=== PATIENT | female | born 1980 | race Hispanic/Latino ===

== ENCOUNTER 2022-10-28 00:54 | Emergency (ER) | payer BC ==
--- OUTSIDE RECORDS SUMMARY | 2022-10-28 00:57 | XMS REPORT | Continuity of Care Document ---
:1980 Author Organization [facility] t Address [address] [place] [address] Care Team Providers Name Role Phone Godfrey Frankel Attending Clinician Unavailable SHENA GOMES Attending Clinician Unavailable Nasra العلي MD Attending Clinician Payers Payer Name Policy Type Policy Number Effective Date Expiration Date S sandy [facility] [id number] 2014 00:00:00 Problems Condition Condition Condition Status Onset Resolution Last Treating Co mments Source Name Details Category Date Date Treatment Clinician Date Contracept Contracept Disease Active 2016-11 U nivers patricia patricia 2-28 [place] [facility] Left groin Left groin Disease Active 2015-11 U nivers pain pain 0-10 ity of 00:00: [place] 00 Medical Branch Well woman Well woman Disease Active U nivers exam exam 6-30 ity of 00:00: [place] 00 Medical Branch History of History of Disease Active Overview : Univers tubal tubal 05-06 Result ity of ligation ligation 00:00: reviewed, Jem as 00 full Medical cross Branch section of each tube present as desired. Irregular Irregular Disease Active Overview: Univers intermenst intermenst 05-06 the last ity of rual rual 00:00: month Pt [place] bleeding bleeding 00 report Medica l spotting Branch after menses and sometimes after relations , urged to keep log Allergies, Adverse Reactions, Alerts Allergy Allergy Status Severity Reaction(s) Onset Inactive Treating Comm ents Source Name Type Date Date Clinician NO KNOWN Drug Active Univers ALLERGIE Class ity of S [facility] Social History Social Habit Start Date Stop Date Quantity Comments Source Alcohol intake [facility] [place] [facility] Sex Assigned At Uni versity [facility] Smoking Status Start Date Stop Date Source Never smoker [facility] Medications Ordered Filled Start Stop Current Ordering Indication Dosage Frequency Signature Comments Components Source Medication Medication Date Date Medication? Clinician (SIG) Name Name ibuprofen 2015-11 Yes [id number] 600mg Take 1 Univers (MOTRIN) 0-10 tablet by ity of 600 mg 00:00: mouth [place] tablet 00 every 6 Medical (six) Branch hours as needed for Pain (scale 4-6) with oral narcotics. Immunizations Ordered Filled Immunization Date Status Comments Sour e Immunization Name Name Influenza Virus 2018-08-07 Completed [facility] y of Vaccine 00:00:00 [facility] Td 2009-11-07 Completed [facility] 00:00:00 [facility] Procedures This patient has no known procedures. Encounters Start End Encounter Admission Attending Care Care Encounter Source Date/Time Date/Time Type Type Clinicians Facility Department ID 2022-01-04 Outpatient Frankel, STLMLC [facility] [id number] Common 13:48:02 Godfrey [facility] 2021-12-02 Outpatient Frankel, STLMLC [facility] [id number] Common 13:39:28 Godfrey [id number] [facility] 2021-12-02 Outpatient Frankel, STLMLC [facility] [id number] Common 12:39:59 Godfrey [id number] [facility] 2021-12-02 Outpatient Frankel, STLMLC [facility] [id number] Common 11:48:56 Godfrey 012[address] [facility] 2021-04-07 2021-04-07 Outpatient R ELISEO [facility] [id number] Univers 10:00:00 10:00:00 SHENA [facility] 2021-03-16 2021-03-16 Outpatient [facility] [id number] Univers 15:50:00 15:50:00 [facility] 2019-06-01 2019-06-01 [id number] Univers 00:00:00 00:00:00 Nasra Castanon [id number] i ty of [place] [id number] Sandra moreno Professio [phone] Ut dical [address] 2019-06-01 2019-06-01 [facility] [id number] 00:00:00 00:00:00 Nasra Castanon [id number] [place] [id number] Professio [phone] [address] Results This patient has no known results.
[2022-10-28] MEDS ORDERED: KETOROLAC 30 MG/ML INJ ONE (01:23)
[2022-10-28] MEDS ORDERED: NA CHLORIDE 0.9% 1,000 ML ONE (01:23)
[2022-10-28] MEDS ORDERED: ONDANSETRON 4 MG/2 ML VIAL ONE (01:23)
[2022-10-28 01:33] LABS: Urine Blood Trace-intact (Negative); Urine Glucose Negative (Negative); Urine Protein 2+ (Negative); Urine Specific Gravity >=1.030 (1.005-1.030)
[2022-10-28 02:48] LABS: Absolute Lymphocytes (CBC) 0.6 K/uL (0.7-4.9); MCV 86.1 fL (80-100); MPV 8.8 fL (7.6-11.3); RBC Red Blood Cell Count 4.53 M/uL (3.86-4.86)
[2022-10-28 02:59] LABS: Albumin 3.4 g/dL (3.4-5.0); Bilirubin Total 0.2 mg/dL (0.2-1.0); Potassium 3.4 mmol/L (3.5-5.1); Protein, Total 7.5 g/dL (6.4-8.2); Troponin High Sensitivity 4.2 pg/mL (<58.9)
[2022-10-28 03:14] LABS: Urine Bacteria None Seen /HPF (<20); Urine Mucus 3+ /HPF (None Seen); Urine RBC <5 /HPF (None Seen)
--- NOTE | 2022-10-28 03:46 | ER ---
Nurse's Notes [facility] Name: Kanwal Groves Age: 42 yrs Sex: Female : 1980 Arrival Date: 10/28/2022 Time: 00:59 Bed 18 Private MD: Diagnosis: Vomiting and diarrhea;Periumbilical abdominal pain Presentation: 10/28 01:10 Chief complaint: Patient states: mid constant abdominal pain with nausea,vomiting x 2 pf1 episodes and diarrhea x 10 episodes in the past 24 hours,onset Tuesday. 01:10 Coronavirus screen: Client presents with at least one sign or symptom that may indicate pf1 coronavirus-19. Standard/surgical mask placed on the client. Ebola Screen: Patient negative for fever greater than or equal to 101.5 degrees Fahrenheit, and additional compatible Ebola Virus Disease symptoms. Initial Sepsis Screen: Does the patient meet any 2 criteria? No. Patient's initial sepsis screen is negative. Does the patient have a suspected source of infection? No. Patient's initial sepsis screen is negative. Risk Assessment: Do you want to hurt yourself or someone else? Patient reports no desire to harm self or others. Onset of symptoms was October 26, 2022. 01:10 Method Of Arrival: Wheelchair pf1 01:10 Acuity: EMILY 3 pf1 Triage Assessment: 02:28 General: see general assessment. 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 - Social history:: Smoking status: Patient/guardian denies using. Screenin:55 [facility] ED Fall Risk Assessment (Adult) History of falling in the last 3 months, pf1 including since admission No falls in past 3 months (0 pts) Confusion or Disorientation No (0 pts) Intoxicated or Sedated No (0 pts) Impaired Gait No (0 pts) Mobility Assist Device Used No (0 pt) Altered Elimination No (0 pt) Score/Fall Risk Level 0 - 2 = Low Risk Oriented to surroundings, Maintained a safe environment, Educated pt \T\ family on fall prevention, incl call for assistance when getting out of bed, Assessed \T\ reinforced patient's understanding of fall precautions, Provided non-skid footwear, Hourly rounding (assess needs \T\ fall precautionary measures) done, Used ambulatory aids as needed (educated on \T\ assisted with), Used gait belt as appropriate. 01:55 Abuse screen: Denies threats or abuse. Nutritional screening: No deficits noted. pf1 Tuberculosis screening: No symptoms or risk factors identified. Assessment: 01:10 General: Appears in no apparent distress. uncomfortable, well groomed, well developed, pf1 Behavior is calm, cooperative, appropriate for age, quiet. 01:10 Pain: Complains of pain in abdomen Pain currently is 8 out of 10 on a pain scale. Pain pf1 began Tuesday with nausea, vomiting x 2 episodes and diarrhea x 10 episodes in the past 24 hours. Neuro: No deficits noted. Level of Consciousness is awake, alert, obeys commands, Oriented to person, place, time, situation. Cardiovascular: No deficits noted. Respiratory: No deficits noted. Breath sounds are clear bilaterally. GI: Abdomen is flat, non-distended, Last BM was October 27, 2022. Bowel sounds present X 4 quads. Abd is soft Abdomen is tender to palpation in Patient C/O mid constant abdominal pain Reports diarrhea, nausea. : No deficits noted. No signs and/or symptoms were reported regarding the genitourinary system. EENT: No deficits noted. No signs and/or symptoms were reported regarding the EENT system. Derm: No deficits noted. No signs and/or symptoms reported regarding the dermatologic system. Skin is intact, Skin is dry, Skin is pink, warm \T\ dry. normal, Skin temperature is warm. Musculoskeletal: No deficits noted. No signs and/or symptoms reported regarding the musculoskeletal system. 02:15 General: Dawit called from lab to report blood was hemolyzed and needed to be pf1 recollected.. 03:43 General: Patient PO challenged at this time. . pf1 04:02 General: Patient tolerated 180ml of water. pf1 Vital Signs: 01:15 BP 112 / 69; Pulse 82; Resp 18; Temp 98.1; Pulse Ox 99% ; Weight 66.22 kg; Height 5 ft. pf1 3 in. (160.02 cm); Pain 8/10; 02:00 BP 102 / 58; Pulse 81; Resp 16; Pulse Ox 99% ; Pain 4/10; pf1 03:00 BP 96 / 53; Pulse 78; Resp 18; Pulse Ox 98% ; Pain 4/10; pf1 03:44 BP 106 / 50; Pulse 78; Resp 18; Temp 97.1; Pulse Ox 98% ; Pain 0/10; pf1 01:15 Body Mass Index 25.86 (66.22 kg, 160.02 cm) pf1 ED Course: 00:59 Patient arrived in ED. ja2 01:00 Abimbola Baxter MD is Attending Physician. sd2 01:10 Patient has correct armband on for positive identification. pf1 01:18 Kathy dove, RENE is Primary Nurse. pf1 01:40 No provider procedures requiring assistance completed. Missed attempt(s): 20 gauge in pf1 left antecubital area. 01:46 Missed attempt(s): 22 gauge in left forearm. pf1 01:54 Patient has correct armband on for positive identification. Placed in gown. Bed in low pf1 position. Call light in reach. 01:59 Inserted saline lock: 20 gauge in right wrist, using aseptic technique. ke1 02:08 Lipase Sent. pf1 02:08 CMP Sent. pf1 02:08 CBC with Diff Sent. pf1 02:28 Triage completed. pf1 03:40 Diet: Patient given water. pf1 04:00 IV discontinued, intact, bleeding controlled, No redness/swelling at site. Pressure pf1 dressing applied. 04:04 Arm band placed on. pf1 Administered Medications: 02:00 Drug: NS 0.9% 1000 ml Route: IV; Rate: 1 bolus; Site: right wrist; ke1 02:25 Follow up: Response: No adverse reaction pf1 03:59 Follow up: IV Status: Completed infusion; IV Intake: 1000ml pf1 02:00 Drug: Zofran (Ondansetron) 4 mg Route: IVP; Site: right wrist; pf1 02:25 Follow up: Response: Nausea is decreased pf1 02:00 Drug: Ketorolac 15 mg Route: IVP; Site: right wrist; pf1 02:26 Follow up: Response: No adverse reaction; Marked relief of symptoms; Pain is decreased; pf1 RASS: Alert and Calm (0) Medication: 01:54 VIS not applicable for this client. pf1 Intake: 03:59 IV: 1000ml; Total: 1000ml. pf1 Outcome: 03:45 Discharge ordered by . sd2 04:02 Discharged to home ambulatory, with family. pf1 04:02 Condition: improved 04:02 Discharge instructions given to patient, Instructed on discharge instructions, follow up and referral plans. medication usage, Demonstrated understanding of instructions, follow-up care, medications, Prescriptions given X 2. 04:05 Patient left the ED. pf1 Signatures: Tatyana Ruano Kouassi, RN RN ke1 Abimbola Baxter MD MD sd2 Kathy dove RN RN pf1 Corrections: (The following items were deleted from the chart) 04:02 03:43 General: Patient PO challenged at this time.. pf1 pf1 04:07 01:10 Chief complaint: Patient states: mid constant abdominal pain with nausea and pf1 diarrhea,onset Tuesday pf1 04:08 01:10 Pain: Complains of pain in abdomen Pain currently is 8 out of 10 on a pain scale. pf1 Pain began Tuesday with nausea and diarrhea x 10 episodes in the past 24 hours. pf1
--- NOTE | 2022-10-28 03:46 | EDPHYS ---
Physician Documentation [facility] Name: Kanwal Groves Age: 42 yrs Sex: Female : 1980 Arrival Date: 10/28/2022 Time: 00:59 Bed 18 Private MD: ED Physician Abimbola Baxter HPI: 10/28 01:15 This 42 yrs old Female presents to ER via Unassigned with complaints of sd2 Abdominal Pain, Vomiting/Diarrhea, Pain All Over. 01:15 42 yo F presents with CC of periumbilical abdominal pain, vomiting and diarrhea since sd2 Tuesday night. No known objective fever. No blood in vomit or stool. No recent travel or sick contacts. Took [place] at home with no relief. Reports body aches as well. . 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 - Social history:: Smoking status: Patient/guardian denies using. ROS: 01:15 Constitutional: Negative for fever, chills, and weight loss, Eyes: Negative for injury, sd2 pain, redness, and discharge, Cardiovascular: Negative for chest pain, palpitations, and edema, Respiratory: Negative for shortness of breath, cough, wheezing. 01:15 MS/Extremity: Negative for injury and deformity, Skin: Negative for injury, rash, and discoloration, Neuro: Negative for headache, numbness and tingling. 01:15 Abdomen/GI: Positive for abdominal pain, nausea, vomiting, and diarrhea, Negative for black/tarry stool, rectal bleeding. Exam: 01:15 Constitutional: This is a well developed, well nourished patient who is awake, alert, sd2 and in no acute distress. Head/Face: Normocephalic, atraumatic. Eyes: EOMI, normal conjunctiva bilaterally Chest/axilla: Normal chest wall appearance and motion. Nontender with no deformity. Cardiovascular: Regular rate and rhythm with a normal S1 and S2. No gallops, murmurs, or rubs. 2+ distal pulses. Respiratory: Lungs have equal breath sounds bilaterally, clear to auscultation and percussion. No rales, rhonchi or wheezes noted. No increased work of breathing, no retractions or nasal flaring. Abdomen/GI: Soft, mild periumbilical tenderness, with normal bowel sounds. No guarding or rebound. Skin: Warm, dry with normal turgor. Normal color with no rashes, no lesions, and no evidence of cellulitis. MS/ Extremity: Pulses equal, no cyanosis. Neurovascular intact. Full, normal range of motion. Ambulatory without difficulty. Psych: Awake, alert, with orientation to person, place and time. Behavior, mood, and affect are within normal limits. 01:58 ECG was reviewed by the Attending Physician. NSR, rate 85, no STEMI criteria, TWI in V3 sd2 Vital Signs: 01:15 BP 112 / 69; Pulse 82; Resp 18; Temp 98.1; Pulse Ox 99% ; Weight 66.22 kg; Height 5 ft. pf1 3 in. (160.02 cm); Pain 8/10; 02:00 BP 102 / 58; Pulse 81; Resp 16; Pulse Ox 99% ; Pain 4/10; pf1 03:00 BP 96 / 53; Pulse 78; Resp 18; Pulse Ox 98% ; Pain 4/10; pf1 03:44 BP 106 / 50; Pulse 78; Resp 18; Temp 97.1; Pulse Ox 98% ; Pain 0/10; pf1 01:15 Body Mass Index 25.86 (66.22 kg, 160.02 cm) pf1 MDM: 01:14 Patient medically screened. sd2 01:15 Differential diagnosis: Gastritis, cholecystitis, pancreatitis, SBO, diverticulitis, sd2 kidney stone, appendicitis, UTI, dehydration, electrolyte abnormality among others. Data reviewed: vital signs, nurses notes. 03:43 Data reviewed: lab test result(s). Counseling: I had a detailed discussion with the sd2 patient and/or guardian regarding: the historical points, exam findings, and any diagnostic results supporting the discharge/admit diagnosis, lab results, the need for outpatient follow up, to return to the emergency department if symptoms worsen or persist or if there are any questions or concerns that arise at home. Medical screen evaluation completed. EMTALA emergency medical condition absent. ED course: Labs reviewed. No significant acute abnormalities. Pt feeling improved after treatment with benign abdominal exam. Tolerating PO. Suspect gastroenteritis. Pt advised of results and continued supportive care for symptoms. pt comfortable with plan for discharge and outpatient follow up. Verbalizes understanding of discharge plan and strict return precautions. . 10/28 01:15 Order name: CBC with Diff; Complete Time: 02:54 sd2 10/28 01:15 Order name: CMP; Complete Time: 03:13 sd2 10/28 01:15 Order name: Lipase; Complete Time: 03:13 sd2 10/28 01:15 Order name: Troponin High Sensitivity; Complete Time: 03:13 sd2 10/28 01:15 Order name: Urine Microscopic Only; Complete Time: 03:30 sd2 10/28 01:33 Order name: Urine Dipstick-Ancillary; Complete Time: 01:57 EDMS 10/28 01:15 Order name: EKG - Nurse/Tech; Complete Time: 02:08 sd2 10/28 01:15 Order name: Urine Dipstick-Ancillary (obtain specimen); Complete Time: 01:32 sd2 10/28 01:15 Order name: Urine Test (obtain specimen); Complete Time: 01:32 sd2 10/28 02:16 Order name: Urine --Ancillary (enter results) 10/28 03:26 Order name: Urine Culture EDVT 10/28 03:33 Order name: PO challenge; Complete Time: 03:59 sd2 Administered Medications: 02:00 Drug: NS 0.9% 1000 ml Route: IV; Rate: 1 bolus; Site: right wrist; ke1 02:25 Follow up: Response: No adverse reaction pf1 03:59 Follow up: IV Status: Completed infusion; IV Intake: 1000ml pf1 02:00 Drug: Zofran (Ondansetron) 4 mg Route: IVP; Site: right wrist; pf1 02:25 Follow up: Response: Nausea is decreased pf1 02:00 Drug: Ketorolac 15 mg Route: IVP; Site: right wrist; pf1 02:26 Follow up: Response: No adverse reaction; Marked relief of symptoms; Pain is decreased; pf1 RASS: Alert and Calm (0) Disposition Summary: 10/28/22 03:45 Discharge Ordered Location: Home sd2 Problem: new sd2 Symptoms: have improved sd2 Condition: Stable sd2 Diagnosis - Vomiting and diarrhea sd2 - Periumbilical abdominal pain sd2 Followup: sd2 - With: Private Physician - When: 2 - 3 days - Reason: Recheck today's complaints, Continuance of care, Re-evaluation by your physician Discharge Instructions: - Discharge Summary Sheet sd2 - Abdominal Pain, Adult sd2 - Food Choices to Help Relieve Diarrhea, Adult sd2 - Diarrhea, Adult sd2 - Vomiting, Adult sd2 Forms: - Medication Reconciliation Form sd2 - Thank You Letter sd2 - Antibiotic Education sd2 - Prescription Opioid Use sd2 Prescriptions: - Zofran 4 mg Oral Tablet - take 1 tablet by ORAL route every 6 hours As needed; 15 tablet; Refills: 0, sd2 Product Selection Permitted - dicyclomine 20 mg Oral Tablet - take 1 tablet by ORAL route every 6 hours As needed Take as needed for sd2 abdominal cramping; 15 tablet; Refills: 0, Product Selection Permitted Signatures: Dispatcher [employer] Laura Ni, RN RN ke1 Abimbola Baxter MD MD sd2 Kathy dove RN RN pf1
[2022-10-28 04:31] VITALS: O2SAT 98
[2022-10-28 04:32] VITALS: BP 106/50; TEMP 97.1
[2022-10-28 05:45] LABS: Urine Specific Gravity/Preg >1.030 (1.005-1.030)
--- NOTE | 2022-10-30 17:29 | EKG ---
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
== END 2022-10-28 04:05 | disposition home or self-care (01) ==
LOC: ER 00:54
DX: R10.33 Periumbilical pain (principal); R11.10 Vomiting, unspecified; R19.7 Diarrhea, unspecified
CPT/HCPCS: 96361; 93005; 87088; 85025; 87086; 36415; 81025; 84484; 83690; 80053; 96375; 96374; 99284; J7030; J2405; 81003; 81015